=== PATIENT | male | born 1970 | race Caucasian/White ===

== ENCOUNTER 2020-11-30 11:41 | Emergency (ER) | payer OTHER ==
[2020-11-30 12:20] LABS: HEMOGLOBIN 9.4 gm/dl (14.0-17.5); RED BLOOD COUNT 3.04 M/UL (4.20-5.50); WHITE BLOOD COUNT 5.6 K/UL (4.5-11.0)
[2020-11-30 12:53] LABS: BUN/CREATININE RATIO 46 (0-10)
[2020-12-27] MEDS ORDERED: ZAROXOLYN/DIULO5 MG PO (14:16)
== END 2020-11-30 17:22 | disposition home or self-care (01) ==
LOC: ER1 11:41
PROVIDERS: Emergency Medicine
DX: E11.65 Type 2 diabetes mellitus with hyperglycemia (principal); I10 Essential (primary) hypertension; E03.9 Hypothyroidism, unspecified; Z79.4 Long term (current) use of insulin; Z86.73 Personal history of transient ischemic attack (TIA), and cerebral infarction without residual deficits; I25.2 Old myocardial infarction
CPT/HCPCS: 36600; 70450; 71045; 80053; 82550; 82553; 82803; 82962; 83605; 83735; 83874; 84100; 84484; 85025; 87040; 93005; 96374; 99285; J2060

== ENCOUNTER 2020-12-06 14:54 | Inpatient (IN) | payer OTHER ==
[~2020-12-06] VITALS: Ht 175.3 cm; Wt 106.6 kg
[2020-12-06 17:49] LABS: HEMOGLOBIN 7.5 gm/dl (14.0-17.5); RED BLOOD COUNT 2.45 M/UL (4.20-5.50); WHITE BLOOD COUNT 4.8 K/UL (4.5-11.0)
[2020-12-07 04:48] LABS: BUN/CREATININE RATIO 35 (0-10)
[2020-12-07] MEDS ORDERED: [UNRECOGNIZED DRUG - CODE] SC (13:48)
[2020-12-07] MEDS ORDERED: LANTUS100 UNIT/1 SQ (13:48)
[2020-12-07] MEDS ORDERED: TAMSULOSIN HCL0.4 MG PO (13:49)
[2020-12-07] MEDS ORDERED: CARVEDILOL25 MG PO (13:49)
[2020-12-07] MEDS ORDERED: VENTOLIN HFA 66.7 GM INH (13:50)
[2020-12-07] MEDS ORDERED: LEVOTHYROXINE50 MCG PO (13:58)
[2020-12-07] MEDS ORDERED: PLAVIX 75 MG TA75 MG PO (13:59)
[2020-12-07] MEDS ORDERED: HYDRALAZINE HCL25 MG PO (14:00)
[2020-12-07] MEDS ORDERED: CLONIDINE1 EACH TD (14:00)
[2020-12-07] MEDS ORDERED: AMLODIPINE BESY10 MG PO (14:00)
[2020-12-07] MEDS ORDERED: ASPIRIN EC325 MG PO (14:01)
[2020-12-07] MEDS ORDERED: FUROSEMIDE40 MG PO (14:01)
[2020-12-07] MEDS ORDERED: SEROQUEL25 MG PO (14:02)
[2020-12-07] MEDS ORDERED: ATORVASTATIN CA80 MG PO (14:02)
[2020-12-07] MEDS ORDERED: OMEPRAZOLE40 MG PO (14:03)
[2020-12-07 15:48] LABS: HEMOGLOBIN 8.8 gm/dl (14.0-17.5); WHITE BLOOD COUNT 4.9 K/UL (4.5-11.0)
[2020-12-07 16:18] LABS: RED BLOOD COUNT 2.88 M/UL (4.20-5.50)
[2020-12-08 03:21] LABS: HEMOGLOBIN 7.6 gm/dl (14.0-17.5)
[2020-12-08 03:22] LABS: RED BLOOD COUNT 2.53 M/UL (4.20-5.50); WHITE BLOOD COUNT 6.4 K/UL (4.5-11.0)
[2020-12-09 04:35] LABS: HEMOGLOBIN 8.2 gm/dl (14.0-17.5); RED BLOOD COUNT 2.71 M/UL (4.20-5.50); WHITE BLOOD COUNT 5.6 K/UL (4.5-11.0)
[2020-12-09 15:30] LABS: HEMOGLOBIN 7.8 gm/dl (14.0-17.5); RED BLOOD COUNT 2.55 M/UL (4.20-5.50)
[2020-12-09 15:34] LABS: WHITE BLOOD COUNT 9.7 K/UL (4.5-11.0)
[2020-12-11 07:10] LABS: HBSAG SCREEN Negative (Negative); HEP B CORE AB, TOT Negative (Negative); HEP C VIRUS AB <0.1 (0.0-0.9)
[2020-12-11 08:13] LABS: ANTISTREPTOLYSIN O AB 93.7 IU/mL (0.0-200.0); COMPLEMENT C3, SERUM 118 mg/dL (82-167); COMPLEMENT C4, SERUM 13 mg/dL (12-38)
[2020-12-12 03:43] LABS: HEMOGLOBIN 7.6 gm/dl (14.0-17.5); RED BLOOD COUNT 2.49 M/UL (4.20-5.50)
[2020-12-12 03:44] LABS: WHITE BLOOD COUNT 6.6 K/UL (4.5-11.0)
[2020-12-13 04:17] LABS: HEMOGLOBIN 7.1 gm/dl (14.0-17.5); RED BLOOD COUNT 2.33 M/UL (4.20-5.50); WHITE BLOOD COUNT 5.8 K/UL (4.5-11.0)
[2020-12-13 15:11] LABS: A/G RATIO 0.7 (0.7-1.7); ALBUMIN 2.1 g/dL (2.9-4.4); ALPHA-1-GLOBULIN 0.3 g/dL (0.0-0.4); ALPHA-2-GLOBULIN 0.8 g/dL (0.4-1.0); BETA GLOBULIN 0.9 g/dL (0.7-1.3); GAMMA GLOBULIN 1.1 g/dL (0.4-1.8); GLOBULIN, TOTAL 3.1 g/dL (2.2-3.9); IMMUNOGLOBULIN A, QN, SERUM 257 mg/dL (90-386); IMMUNOGLOBULIN G, QN, SERUM 1076 mg/dL (603-1613); IMMUNOGLOBULIN M, QN, SERUM 170 mg/dL (20-172); M-SPIKE Not Observed g/dL (Not Observed); PROTEIN, TOTAL, SERUM 5.2 g/dL (6.0-8.5)
[2020-12-13 16:11] LABS: ANTI-DSDNA ANTIBODIES 1 IU/mL (0-9)
[2020-12-13 17:11] LABS: ATYPICAL PANCA <1:20 titer (Neg:<1:20); CYTOPLASMIC (C-ANCA) <1:20 titer (Neg:<1:20); PERINUCLEAR (P-ANCA) <1:20 titer (Neg:<1:20)
[2020-12-14 06:03] LABS: HEMOGLOBIN 7.4 gm/dl (14.0-17.5); RED BLOOD COUNT 2.45 M/UL (4.20-5.50); WHITE BLOOD COUNT 5.5 K/UL (4.5-11.0)
[2020-12-15 06:28] LABS: HEMOGLOBIN 7.3 gm/dl (14.0-17.5); RED BLOOD COUNT 2.39 M/UL (4.20-5.50); WHITE BLOOD COUNT 6.3 K/UL (4.5-11.0)
--- NOTE | 2020-12-15 11:34 | NUR ---
VERBAL ORDER FROM THAT IT IS OKAY TO D/C TELE LONG ENOUGH FOR PATIENT TO GO TO MRI.
[2020-12-16 06:36] LABS: RED BLOOD COUNT 2.37 M/UL (4.20-5.50); WHITE BLOOD COUNT 7.2 K/UL (4.5-11.0)
[2020-12-16 06:38] LABS: HEMOGLOBIN 6.9 gm/dl (14.0-17.5)
--- NOTE | 2020-12-16 08:40 | NUR ---
PROVIDER MADE AWARE OF ABNORMAL PTT. HEPARIN DRIP STOPPED AT THIS TIME. PATIENTIN NO DISTRESS AT THIS TIME. NO NEW ORDERS GIVEN FROM PROVIDER. HEPARIN PROTOCOL USED FOR REFERENCE REGARDING PLAN OF CARE UPDATE.
[2020-12-16 13:14] LABS: ANTIHISTONE ANTIBODIES 0.8 Units (0.0-0.9)
--- NOTE | 2020-12-16 16:58 | NUR ---
VERBAL ORDER FROM TO HOLD HEPARIN IN ORDER TO START BLOOD DUE TO LACK OF IV ACCESS. TURRET PRESS OPERATOR WILL START AN ULTRASOUND IV CECELIA.
[2020-12-17 02:08] LABS: HEMOGLOBIN 8.4 gm/dl (14.0-17.5); WHITE BLOOD COUNT 6.9 K/UL (4.5-11.0)
[2020-12-17 02:09] LABS: RED BLOOD COUNT 2.82 M/UL (4.20-5.50)
[2020-12-18 03:49] LABS: HEMOGLOBIN 8.1 gm/dl (14.0-17.5); RED BLOOD COUNT 2.7 M/UL (4.20-5.50)
[2020-12-19 05:51] LABS: RED BLOOD COUNT 2.66 M/UL (4.20-5.50); WHITE BLOOD COUNT 12.4 K/UL (4.5-11.0)
--- NOTE | 2020-12-19 11:33 | NUR ---
PATIENT STATES HE SPAT UP BLOOD. BLOOD WAS NOTED ON TOP OF PATIENTS SOD[place] CAN. PROVIDER WAS CALLED AND RETURNED CALL. ADVISED NURSE TO HOLD HEPARIN DRIP UNTIL DR. DUNLAP COULD SEE PATIENT DOCTOR FABI ORDERED HEPARIN DRIP.
[2020-12-19 14:40] LABS: HEMOGLOBIN 8.2 gm/dl (14.0-17.5)
[2020-12-20 03:48] LABS: HEMOGLOBIN 7.9 gm/dl (14.0-17.5); RED BLOOD COUNT 2.62 M/UL (4.20-5.50); WHITE BLOOD COUNT 14.8 K/UL (4.5-11.0)
--- NOTE | 2020-12-20 15:24 | NUR ---
PATIENT HAD HYPOGLYCEMIC EVENT THIS MORNING WITH HIS BLOOD GLUCOSE BEING 25 ON FIRST CHECK AND 22 WHEN CHECKED WITH A DIFFERENT MONITOR. THE HOSPITALIST WAS CALLED AND ORDERED AN AMP OF D50. NO PROTEIN PROVIDED AFTER EVENT PATIENT WAS SCHEDULED TO HAVE RENAL BIOPSY THIS AM. AFTER 45 MINIUTES PATIENTS BLOOD GLUCOSE WAS RECHECKED RESULTING IN A BLOOD GLUCOSE OF 60. PROVIDER WAS NOTIFIED AND A SECOND AMP OF D50 WAS ORDERED. AFTER AN HOUR PATIENTS BLOOD GLUCOSE WAS CHECKED AGAIN RESULTING IN A BLOOD GLUCOSE OF 80. PROVIDER WAS NOTIFIED AND ASKED THAT THE BLOOD GLUCOSE BE RECHECKED JUST PRIOR TO PATIENT LEAVING THE FLOOR FOR THE RENAL BIOPSY. BLOOD GLUCOSE WAS 137 WHEN PATIENT LEFT FLOOR FOR THE BIOPSY. PROVIDER ASKED THAT THE PATIENTS BLOOD GLUCOSE BE CHECKED AGAIN AT 1430 RESULTING IN A BLOOD GLUCOSE AT THAT TIME OF 78. PATIENT IS ON A 3 HOUR CLEAR LIQUID DIET POST BIOPSY PROVIDING NO EVIDENCE OF HEMATIURIA, IN THAT TIME. PATIENT WAS PROVIDED WITH EXTRA BROTH AND A REGULAR 7UP TO HELP KEEP BLOOD SUGAR UP UNTIL A REGULAR DIET CAN BE REESTABLISHED AT THE END OF THE 3 HOUR CLEAR DIET.
[2020-12-21 06:15] LABS: HEMOGLOBIN 7.9 gm/dl (14.0-17.5); RED BLOOD COUNT 2.63 M/UL (4.20-5.50)
[2020-12-23 06:48] LABS: RED BLOOD COUNT 2.7 M/UL (4.20-5.50)
[2020-12-23 07:01] LABS: WHITE BLOOD COUNT 12.8 K/UL (4.5-11.0)
--- NOTE | 2020-12-23 14:20 | NUR ---
12/23/20 1410 POX 88% ROOM AIR
[2020-12-24] MEDS ORDERED: FERROUS GLUCON324 M1 PO (13:16)
[2020-12-24] MEDS ORDERED: PLAQUENIL 200200 MG PO (13:16)
[2020-12-24] MEDS ORDERED: LANTUS100 UNIT/1 SQ (13:16)
[2020-12-24] MEDS ORDERED: STIMULANT LAXA1 EACH PO (13:16)
[2020-12-24] MEDS ORDERED: ASPIRIN EC81 MG PO (13:16)
[2020-12-24] MEDS ORDERED: LACTULOSE20 GM/30 M PO (13:16)
[2020-12-24] MEDS ORDERED: COZAAR 25MG TAB25 MG PO (13:16)
[2020-12-24] MEDS ORDERED: CLONIDINE HCL0.3 MG PO (13:16)
[2020-12-24] MEDS ORDERED: BUMETANIDE1 MG PO (13:16)
[2020-12-24] MEDS ORDERED: NICARDIPINE HCL30 MG PO ×2 (13:16→13:28)
[2020-12-24] MEDS ORDERED: LEVOTHYROXINE88 MCG PO (13:16)
[2020-12-27] MEDS ORDERED: ZAROXOLYN/DIULO5 MG PO (14:16)
== END 2020-12-24 15:37 | disposition home or self-care (01) | DRG 291 ==
LOC: ER1 14:54 → MED SURG 4 20:23 → CDU 20:23 → MED SURG 4 20:23 → CDU 20:23 → MED SURG 4 12-07 17:10
PROVIDERS: Emergency Medicine; Internal Medicine; Internal Medicine Infectious Disease; Internal Medicine Nephrology; Physician Assistant Medical; ADMIT Internal Medicine
PROC: B24BZZ4 Ultrasonography of Heart with Aorta, Transesophageal (ICD-10-PCS; 2020-12-08)
PROC: 0TB43ZX Excision of Left Kidney Pelvis, Percutaneous Approach, Diagnostic (ICD-10-PCS; principal; 2020-12-20)
PROC: BT42ZZZ Ultrasonography of Left Kidney (ICD-10-PCS; 2020-12-20)
DX: I13.0 Hypertensive heart and chronic kidney disease with heart failure and stage 1 through stage 4 chronic kidney disease, or unspecified chronic kidney disease (principal); I50.43 Acute on chronic combined systolic (congestive) and diastolic (congestive) heart failure; N17.9 Acute kidney failure, unspecified; R04.2 Hemoptysis; I25.10 Atherosclerotic heart disease of native coronary artery without angina pectoris; E78.5 Hyperlipidemia, unspecified; E11.22 Type 2 diabetes mellitus with diabetic chronic kidney disease; Z20.822 Contact with and (suspected) exposure to COVID-19; D63.1 Anemia in chronic kidney disease; I16.0 Hypertensive urgency; N18.30 Chronic kidney disease, stage 3 unspecified; E03.9 Hypothyroidism, unspecified; E88.09 Other disorders of plasma-protein metabolism, not elsewhere classified; F15.10 Other stimulant abuse, uncomplicated; E11.21 Type 2 diabetes mellitus with diabetic nephropathy; E87.6 Hypokalemia; I27.20 Pulmonary hypertension, unspecified; M06.9 Rheumatoid arthritis, unspecified; I08.1 Rheumatic disorders of both mitral and tricuspid valves; E11.649 Type 2 diabetes mellitus with hypoglycemia without coma; G47.00 Insomnia, unspecified; R47.1 Dysarthria and anarthria; R41.3 Other amnesia; N40.0 Benign prostatic hyperplasia without lower urinary tract symptoms; Z86.11 Personal history of tuberculosis; Z95.5 Presence of coronary angioplasty implant and graft; Z86.73 Personal history of transient ischemic attack (TIA), and cerebral infarction without residual deficits; Z87.891 Personal history of nicotine dependence; Z82.49 Family history of ischemic heart disease and other diseases of the circulatory system; Z80.9 Family history of malignant neoplasm, unspecified; Z79.82 Long term (current) use of aspirin
CPT/HCPCS: ECHO; 36415; 36430; 70551; 71045; 71046; 71250; 77012; 80048; 80053; 81001; 82272; 82550; 82553; 82570; 82607; 82652; 82728; 82746; 82784; 82962; 83010; 83520; 83540; 83550; 83615; 83690; 83735; 83874; 83880; 83883; 84100; 84155; 84156; 84165; 84443; 84484; 85014; 85018; 85025; 85027; 85045; 85049; 85610; 85730; 86038; 86060; 86140; 86160; 86162; 86225; 86256; 86334; 86431; 86704; 86706; 86708; 86803; 86850; 86900; 86901; 86920; 87340; 88305; 88313; 88346; 88348; 89050; 93005; 93306; 94640; 94664; 94760; 97161; 97165; 99285; A6212; G0378; J0360; J1100; J1205; J1644; J1650; J1756; J1940; J2930; J7030; P9016; P9047; U0002

== ENCOUNTER 2020-12-31 11:13 | Inpatient (IN) | payer OTHER ==
[~2020-12-31] VITALS: Ht 175.3 cm; Wt 108.0 kg
[~2020-12-31 11:13] MED LIST: AMLODIPINE BESY10 MG PO; ASPIRIN EC325 MG PO; ASPIRIN EC81 MG PO; ATORVASTATIN CA80 MG PO; BUMETANIDE1 MG PO; CARVEDILOL25 MG PO; CLONIDINE HCL0.3 MG PO; CLONIDINE1 EACH TD; COZAAR 25MG TAB25 MG PO; FERROUS GLUCON324 M1 PO; FUROSEMIDE40 MG PO; HYDRALAZINE HCL25 MG PO; LACTULOSE20 GM/30 M PO; LANTUS100 UNIT/1 SQ; LEVOTHYROXINE50 MCG PO; LEVOTHYROXINE88 MCG PO; NICARDIPINE HCL30 MG PO; OMEPRAZOLE40 MG PO; PLAQUENIL 200200 MG PO; PLAVIX 75 MG TA75 MG PO; SEROQUEL25 MG PO; STIMULANT LAXA1 EACH PO; TAMSULOSIN HCL0.4 MG PO; VENTOLIN HFA 66.7 GM INH; ZAROXOLYN/DIULO5 MG PO; [UNRECOGNIZED DRUG - CODE] SC
[2020-12-31 11:44] LABS: HEMOGLOBIN 7.8 gm/dl (14.0-17.5); RED BLOOD COUNT 2.59 M/UL (4.20-5.50); WHITE BLOOD COUNT 6.5 K/UL (4.5-11.0)
[2020-12-31 12:15] LABS: BUN/CREATININE RATIO 29 (0-10)
[2020-12-31] MEDS ORDERED: BUMETANIDE2 MG PO (14:15)
[2021-01-01 02:32] LABS: HEMOGLOBIN 7.4 gm/dl (14.0-17.5); RED BLOOD COUNT 2.46 M/UL (4.20-5.50); WHITE BLOOD COUNT 7.4 K/UL (4.5-11.0)
[2021-01-03 05:26] LABS: HEMOGLOBIN 7.2 gm/dl (14.0-17.5); RED BLOOD COUNT 2.41 M/UL (4.20-5.50)
[2021-01-03 05:29] LABS: WHITE BLOOD COUNT 5.5 K/UL (4.5-11.0)
[2021-01-04 08:18] LABS: HEMOGLOBIN 7.8 gm/dl (14.0-17.5); RED BLOOD COUNT 2.58 M/UL (4.20-5.50); WHITE BLOOD COUNT 5.7 K/UL (4.5-11.0)
[2021-01-04] MEDS ORDERED: LANTUS INS100 UTS/M1 SQ (12:52)
[2021-01-04] MEDS ORDERED: ALDACTONE 25MG25 MG PO (12:52)
[2021-01-04] MEDS ORDERED: NICARDIPINE HCL30 MG PO (12:52)
[2021-01-04] MEDS ORDERED: BUMETANIDE1 MG PO (12:52)
[2021-01-04] MEDS ORDERED: CATAPRES 0.1MG0.1 MG PO (12:52)
[2021-01-05 14:15] LABS: ANTIMYELOPEROXIDASE (MPO) ABS <9.0 U/mL (0.0-9.0); ANTIPROTEINASE 3 (PR-3) ABS <3.5 U/mL (0.0-3.5); ATYPICAL PANCA <1:20 titer (Neg:<1:20); PERINUCLEAR (P-ANCA) <1:20 titer (Neg:<1:20)
== END 2021-01-04 15:16 | disposition home or self-care (01) | DRG 291 ==
LOC: ER1 11:13 → CDU 13:28 → MED SURG 4 14:20
PROVIDERS: Emergency Medicine; Internal Medicine Nephrology; Physician Assistant; ADMIT Internal Medicine
DX: I13.0 Hypertensive heart and chronic kidney disease with heart failure and stage 1 through stage 4 chronic kidney disease, or unspecified chronic kidney disease (principal); I50.33 Acute on chronic diastolic (congestive) heart failure; N17.9 Acute kidney failure, unspecified; N04.9 Nephrotic syndrome with unspecified morphologic changes; N18.30 Chronic kidney disease, stage 3 unspecified; D53.9 Nutritional anemia, unspecified; I16.0 Hypertensive urgency; E11.22 Type 2 diabetes mellitus with diabetic chronic kidney disease; M06.9 Rheumatoid arthritis, unspecified; D69.6 Thrombocytopenia, unspecified; I25.10 Atherosclerotic heart disease of native coronary artery without angina pectoris; E03.9 Hypothyroidism, unspecified; I27.20 Pulmonary hypertension, unspecified; H54.7 Unspecified visual loss; E88.09 Other disorders of plasma-protein metabolism, not elsewhere classified; R60.1 Generalized edema; E11.21 Type 2 diabetes mellitus with diabetic nephropathy; Z72.0 Tobacco use; Z95.1 Presence of aortocoronary bypass graft; Z82.49 Family history of ischemic heart disease and other diseases of the circulatory system; Z79.4 Long term (current) use of insulin; Z86.73 Personal history of transient ischemic attack (TIA), and cerebral infarction without residual deficits
CPT/HCPCS: 36415; 36600; 71045; 80048; 80053; 82550; 82553; 82728; 82803; 82962; 83036; 83520; 83540; 83550; 83874; 83880; 84484; 85025; 85027; 86200; 86256; 93005; 93971; 94760; 99285; Q5105; U0002

== ENCOUNTER → 2021-04-21 | Outpatient (CLI) | payer OTHER ==
[~2021-04-21] MED LIST changes: +ALDACTONE 25MG25 MG PO; +BUMETANIDE2 MG PO; +CATAPRES 0.1MG0.1 MG PO; +LANTUS INS100 UTS/M1 SQ
[2021-04-22 10:14] LABS: CREATININE, URINE 45.6 mg/dL (Not Estab.)
== END ==
LOC: LAB 10:32
PROVIDERS: Internal Medicine Nephrology
DX: N04.9 Nephrotic syndrome with unspecified morphologic changes (principal); N18.32 Chronic kidney disease, stage 3b
CPT/HCPCS: 36415; 80053; 82043; 82570; 84156